=== PATIENT | male | born 1990 | race Caucasian/White ===

== ENCOUNTER 2024-06-18 18:45 | Observation (INO) ==
[2024-06-18] MEDS: ONDANSETRON INJ 2 MG/ML 2 ML VIAL IV STA (19:13)
--- NOTE | 2024-06-18 19:13 | Emergency Department Note ---
Impression & Plan Near syncope ED Provider Note HISTORY OF PRESENT ILLNESS: Patient is a 33-year-old male presenting after syncopal episode. Patient reports that he was out to dinner when he started to "feel weird." He states that he got very hot and had a pain in his left chest by his shoulder and felt very nauseous. He states that he felt like he was getting passed out so he is slumped forward and put his head down on the table. He reportedly did not fall out of the chair. On EMS arrival, the patient reportedly had a blood pressure of 80/40 and a fingerstick glucose of 55. He was given oral glucose and his blood sugar improved to 72 on recheck. Patient denies any chest pain or shortness of breath on arrival to the ER. He reports he still does not feel well but feels slightly improved from earlier. He has never had any syncopal episodes previously. However, he does report that in the last month that every time he works out at the gym he feels very lightheaded and dizzy and has to sit down or lay down on the ground because he feels like he is going to pass out. He denies any DVT or PE history. Denies any medication changes or [id number] medications. Denies any anticoagulation use. He denies any recent head injuries or chiropractic manipulation of his neck. Patient is currently complaining of nausea. ROS: as above PHYSICAL EXAM: Constitutional: Patient appears in no acute distress. HENT: Head: Normocephalic and atraumatic. Eyes: EOMI, PERRL Mouth/Throat: Mucous membranes moist. Neck: Trachea midline. Neck supple. Cardiovascular: RRR, No murmurs, rubs or gallops. Intact distal pulses. Pulmonary/Chest: No respiratory distress. Breath sounds clear and equal bilaterally. No wheezes or rales. Abdominal: Abdomen soft, no tenderness, rebound or guarding. Musculoskeletal: No edema, tenderness or deformity noted. Skin: Warm and dry. No rash, erythema, pallor or cyanosis Psychiatric: Appropriate mood and affect for situation. Neurological: Alert and keenly responsive. CN II-XII grossly intact, moving all extremities equally and fully. MDM: - Vitals signs stable. - History obtained via patient. History as above. - Chronic conditions affecting care: Anxiety disorder; migraine - Differential diagnoses include, but are not limited to: ACS; PE; dysrhythmia; electrolyte abnormality; orthostatic hypotension - Order placed for continuous cardiac monitoring. At this time, monitor showed rate of 75 bpm with normal sinus rhythm, per my interpretation. - External medical records reviewed. Primary care visit note dated 06/17/2024 was reviewed. Patient was seen for 3-month follow-up after starting fluoxetine. - EKG interpreted by myself showed normal sinus rhythm. Rate 69 bpm. QT 406. No acute ischemic changes. - Laboratory workup interpreted by myself showed normal WBC; normal PT/INR; negative D-dimer stable electrolytes;; normal troponin; normal lipase; normal TSH - CXR negative for pneumonia, per my interpretation - Repeat troponin within normal limits - UA negative for infection - Patient given 4 mg IV zofran for nausea in ER. - Orthostatic vital signs within normal limits - Patient ambulated to the bathroom with nursing staff and stated that he felt that weird sensation again and got very diaphoretic and lightheaded. He was assisted back to the bed by nursing staff. Fingerstick glucose of 120. Vital signs stable on return to the bed. -However, given patient's persistent symptoms and near syncopal episode again in the ER, will admit for further workup including an echocardiogram. - Discussion was had with caseworker intake about patient's case and need for admission - Hospitalist, Dr. Olson, consulted for admission - Patient admitted to [facility] hospitalist service for further evaluation and management. ASSESSMENT AND PLAN: Diagnosis: near syncope Plan: Admit Past Med/Surg History Problem List (Updated 06/18/24 @ 22:48 by Shayy Julian MD) Near syncope (Acute) Migraine Generalized anxiety disorder No significant past surgical history No chronic diseases present Surgical History Hx of elbow surgery Family History Grandmother (Maternal) Breast cancer Lung cancer Father Depression Mother Depression Denies family history of Ovarian cancer Prostate cancer Diabetes Dementia Heart disease Myocardial infarction Colorectal cancer Hypertension Stroke Social History Smoking Status: Former smoker Second Hand Exposure: No; Do You Dip or Chew Tobacco: No; Hx Alcohol Use: No Hx Substance Use: No Preferred Language: Bahamian Visual Impairment: Limited Hearing Ability: Normal marital status: Current Living Situation: Spouse current occupational status: employed How many Children do You have: 0 Feels Safe at Home: Yes Childhood Exposure to Second-Hand Smoke: No Diet: regular caffeine: Yes during the past year weight has: increased > 10 lbs Dental Care, Regularly: No Physical Activity Frequency: Daily Physical Activity Frequency Comment: Walking Seatbelt Use: always Sunscreen Use: No Assistive Devices: Glasses Allergies Allergies Allergy/AdvReac Type Severity Reaction Status Date / Time No Known Drug Allergies Allergy Verified 06/17/24 09:13 Home Meds Home Medications Medication Instructions Recorded Confirmed lisdexamfetamine 30 mg capsule 30 mg PO QAM 06/17/24 06/18/24 Previous Rx's Medication Instructions Recorded fluoxetine 20 mg capsule 20 mg PO DAILY #30 caps 02/11/24 fluoxetine 10 mg capsule 10 mg PO DAILY #30 caps 03/18/24 Results & Data (ED) Vital Signs Vital Signs - 24 hr 06/18/24 18:49 06/18/24 18:49 06/18/24 19:06 Temperature 36.3 C L Temperature Source Oral Pulse Rate - Lying Pulse Rate - Sitting Pulse Rate - Standing Pulse Rate 73 80 Pulse Rate [Apical] Respiratory Rate 15 Respiratory Depth Normal Blood Pressure - Lying Blood Pressure - Sitting Blood Pressure- Standing Blood Pressure 110/66 Blood Pressure [Right Arm] Blood Pressure Mean 80 Blood Pressure Mean [Right Arm] Blood Pressure Position Semi-fowlers Blood Pressure Position [Right Arm] Pulse Oximetry 100 Oxygen Delivery Method Room Air Room Air Sepsis Recent Fever Within 48 Hours No Sepsis New/Unexplained Change in Mental Status No Sepsis Action Taken by Nursing No Action Required 06/18/24 21:10 06/18/24 21:12 06/18/24 22:43 Temperature Temperature Source Pulse Rate - Lying 63 Pulse Rate - Sitting 72 Pulse Rate - Standing 71 Pulse Rate Pulse Rate [Apical] 63 75 Respiratory Rate 15 18 Respiratory Depth Blood Pressure - Lying 113/68 Blood Pressure - Sitting 118/57 L Blood Pressure- Standing 115/74 Blood Pressure Blood Pressure [Right Arm] 115/74 105/71 Blood Pressure Mean Blood Pressure Mean [Right Arm] 87 82 Blood Pressure Position Blood Pressure Position [Right Arm] Semi-fowlers Pulse Oximetry 97 96 Oxygen Delivery Method Sepsis Recent Fever Within 48 Hours Sepsis New/Unexplained Change in Mental Status Sepsis Action Taken by Nursing Laboratory Data 06/18/24 18:55 06/18/24 20:17 Lab Results 06/18/24 06/18/24 06/18/24 Range/Units 18:55 20:17 20:50 WBC 5.96 (4.8-10.8) K/ul RBC 4.37 L (4.70-6.10) M/uL Hgb 14.0 (14.0-18.0) g/dl Hct 40.3 L (42.0-52.0) % MCV 92.2 (80.0-100.0) fL MCH 32.0 (25.0-34.0) pg MCHC 34.7 (32.0-36.0) g/dL RDW Std Deviation 42.7 (36.4-46.3) fL RDW Coeff of Jerrod 12.5 (11.5-14.5) % Plt Count 189 (130-400) K/uL MPV 10.1 (9.4-12.4) fL Immature Gran % (Auto) 0.2 % Neut % (Auto) 47.9 % Lymph % (Auto) 41.8 % [place] % (Auto) 8.4 % Eos % (Auto) 1.5 % Baso % (Auto) 0.2 % Neut # (Auto) 2.86 (1.40-6.50) K/uL Lymph # (Auto) 2.49 (1.20-3.40) K/uL [place] # (Auto) 0.50 (0.11-0.59) K/uL Eos # (Auto) 0.09 (0.00-0.50) K/uL Baso # (Auto) 0.01 (0.00-0.20) K/uL Immature Gran # (Auto) 0.01 (0.01-0.20) K/uL PT 11.7 (9.0-12.0) Seconds INR 1.1 (0.9-1.1) D-Dimer < 190 (0-500) ug/L FEU Sodium 139 (136-145) mmol/L Potassium TNP 3.8 Chloride 107 (98-107) mmol/L Carbon Dioxide 24 (21-32) mmol/L Anion Gap 8 (3-11) BUN 10 (6-23) mg/dl Creatinine 0.77 (0.6-1.4) mg/dl Est Cr Clr Drug Dosing 152.8 ml/min eGFR 120.48 BUN/Creatinine Ratio 13.0 (10-20) Glucose 83 (70-99(Fasting)) mg/dl POC Glucose (70-99) mg/dl Calcium 8.6 (8.6-10.3) mg/dl Magnesium 2.1 (1.7-2.4) mg/dl Total Bilirubin 0.6 (0.2-1.0) mg/dl AST TNP 14 ALT 12 (7-52) U/L Alkaline Phosphatase 59 (34-104) U/L Troponin I High Sens < 2.3 (0-20) pg/ml Total Protein 6.8 (6.0-8.3) gm/dl Albumin 4.3 (3.4-5.0) gm/dl Globulin 2.5 (2.5-4.0) gm/dl Albumin/Globulin Ratio 1.7 (0.9-2) Lipase 42 (11-82) U/L TSH 2.486 (0.300-4.500) uIu/ml Urine Color Yellow Urine Appearance Clear (Clear) Urine pH 7.0 (4.5-7.5) Ur Specific [place] 1.008 (1.000-1.030) Urine Protein Negative (Negative) Urine Glucose (UA) Negative (Negative) Urine Ketones Negative (Negative) Urine Blood Negative (Negative) Urine Nitrite Negative (Negative) Urine Bilirubin Negative (Negative) Urine Urobilinogen Negative (Negative) Ur Leukocyte Esterase Negative (Negative) 06/18/24 06/18/24 Range/Units 21:43 22:41 WBC (4.8-10.8) K/ul RBC (4.70-6.10) M/uL Hgb (14.0-18.0) g/dl Hct (42.0-52.0) % MCV (80.0-100.0) fL MCH (25.0-34.0) pg MCHC (32.0-36.0) g/dL RDW Std Deviation (36.4-46.3) fL RDW Coeff of Jerrod (11.5-14.5) % Plt Count (130-400) K/uL MPV (9.4-12.4) fL Immature Gran % (Auto) % Neut % (Auto) % Lymph % (Auto) % [place] % (Auto) % Eos % (Auto) % Baso % (Auto) % Neut # (Auto) (1.40-6.50) K/uL Lymph # (Auto) (1.20-3.40) K/uL [place] # (Auto) (0.11-0.59) K/uL Eos # (Auto) (0.00-0.50) K/uL Baso # (Auto) (0.00-0.20) K/uL Immature Gran # (Auto) (0.01-0.20) K/uL PT (9.0-12.0) Seconds INR (0.9-1.1) D-Dimer (0-500) ug/L FEU Sodium (136-145) mmol/L Potassium Chloride (98-107) mmol/L Carbon Dioxide (21-32) mmol/L Anion Gap (3-11) BUN (6-23) mg/dl Creatinine (0.6-1.4) mg/dl Est Cr Clr Drug Dosing ml/min eGFR BUN/Creatinine Ratio (10-20) Glucose (70-99(Fasting)) mg/dl POC Glucose 120 H (70-99) mg/dl Calcium (8.6-10.3) mg/dl Magnesium (1.7-2.4) mg/dl Total Bilirubin (0.2-1.0) mg/dl AST ALT (7-52) U/L Alkaline Phosphatase (34-104) U/L Troponin I High Sens < 2.3 (0-20) pg/ml Total Protein (6.0-8.3) gm/dl Albumin (3.4-5.0) gm/dl Globulin (2.5-4.0) gm/dl Albumin/Globulin Ratio (0.9-2) Lipase (11-82) U/L TSH (0.300-4.500) uIu/ml Urine Color Urine Appearance (Clear) Urine pH (4.5-7.5) Ur Specific [place] (1.000-1.030) Urine Protein (Negative) Urine Glucose (UA) (Negative) Urine Ketones (Negative) Urine Blood (Negative) Urine Nitrite (Negative) Urine Bilirubin (Negative) Urine Urobilinogen (Negative) Ur Leukocyte Esterase (Negative) Administered Medications Discontinued Medications Ondansetron HCl (Ondansetron Inj 2 Mg/Ml 2 Ml Vial) 4 mg IV NOW STA Stop: 06/18/24 19:11 Last Admin: 06/18/24 19:13 Dose: 4 mg Documented By: LIZZ Discharge Plan Visit Data Chief Complaint: Syncope Stated Complaint: SYNCOPE ED Provider: Shayy Julian Discharge Problem: Near syncope Forms Stand Alone Forms: [facility] Prescriptions Prescriptions: No Action fluoxetine 10 mg capsule 10 mg PO DAILY Qty: 30 2RF Rx Instructions: in addition to 20mg capsule for total of 30mg lisdexamfetamine 30 mg capsule 30 mg PO QAM fluoxetine 20 mg capsule 20 mg PO DAILY Qty: 30 2RF Referrals Referrals: Ariel Duarte CRNP [Primary Care Provider] -
[2024-06-18 19:14] LABS: Basophils # (auto) 0.01 K/uL (0.00-0.20); Basophils % (auto) 0.2 %; Eosinophils # (auto) 0.09 K/uL (0.00-0.50); Eosinophils % (auto) 1.5 %; Hematocrit (blood only) 40.3 % (42.0-52.0); Immature Granulocytes # (auto) 0.01 K/uL (0.01-0.20); Immature Granulocytes % (auto) 0.2 %; Lymphocytes # (auto) 2.49 K/uL (1.20-3.40); Lymphocytes % (auto) 41.8 %; Mean Corpuscular Hgb Conc 34.7 g/dL (32.0-36.0); Mean Corpuscular Volume 92.2 fL (80.0-100.0); Mean Platelet Volume 10.1 fL (9.4-12.4); Monocytes % (auto) 8.4 %; Neutrophils # (auto) 2.86 K/uL (1.40-6.50); Neutrophils % (auto) 47.9 %; Platelet Count 189 K/uL (130-400); RDW Coefficient of Variation 12.5 % (11.5-14.5); RDW Standard Deviation 42.7 fL (36.4-46.3); Red Blood Count 4.37 M/uL (4.70-6.10); White Blood Count 5.96 K/ul (4.8-10.8)
[2024-06-18 19:38] LABS: D Dimer < 190 ug/L FEU (0-500); INR 1.1 (0.9-1.1); Prothrombin Time 11.7 Seconds (9.0-12.0)
[2024-06-18 19:53] LABS: Alanine Aminotransferase 12 U/L (7-52); Albumin Globulin Ratio 1.7 (0.9-2); Albumin Level 4.3 gm/dl (3.4-5.0); Alkaline Phosphatase 59 U/L (34-104); Anion Gap 8 (3-11); Bilirubin,Total 0.6 mg/dl (0.2-1.0); Blood Urea Nitrogen 10 mg/dl (6-23); Calcium 8.6 mg/dl (8.6-10.3); Carbon Dioxide 24 mmol/L (21-32); Chloride 107 mmol/L (98-107); Creatinine Clr Calc Pharmacy 152.8 ml/min; Globulin 2.5 gm/dl (2.5-4.0); Glucose 83 mg/dl (70-99(Fasting)); Lipase 42 U/L (11-82); Magnesium 2.1 mg/dl (1.7-2.4); Sodium 139 mmol/L (136-145); Thyroid Stimulating Hormone 2.486 uIu/ml (0.300-4.500); Total Protein 6.8 gm/dl (6.0-8.3); Troponin I High Sensitivity < 2.3 pg/ml (0-20)
[2024-06-18 20:47] LABS: Potassium 3.8 mmol/L (3.5-5.1)
[2024-06-18 21:08] LABS: Appearance Urine Clear (Clear); Bilirubin Urine Negative (Negative); Blood Urine Negative (Negative); Color Urine Yellow; Glucose Urine UA Negative (Negative); Ketones Urine Negative (Negative); Leukocyte Esterase Urine Negative (Negative); Nitrite Urine Negative (Negative); Protein Urine Negative (Negative); Specific Gravity Urine 1.008 (1.000-1.030); Urobilinogen Urine Negative (Negative)
[2024-06-18 22:43] VITALS: RESP 18
--- NOTE | 2024-06-18 22:47 | History & Physical Report ---
Date of Service June 18, 2024 Assessment & Plan (1) Near syncope: Plan: EKG showed NSR Troponin negative, TSH WNL, D-dimer negative CXR negative echo ordered promote oral hydration orthostatic VS ordered monitor on telemetry Suspect orthostatic hypotension secondary to fluoxetine use; episodes of lightheadedness began approximately 4 months ago after starting fluoxetine Defer fluoxetine titration to PCP (2) Generalized anxiety disorder: Plan: continue fluoxetine at this time; see #1 (3) ADHD: Plan: Continue Vyvanse Plan Patient is a 33-year-old male with a past medical history of anxiety and ADHD. patient had an syncopal episode at dinner 06/18. He also has had lightheadedness after working out and feels dizzy when going from sitting to standing x 4 months after starting fluoxetine. He is being admitted for a syncopal workup including an echocardiogram. VTE ppx: SCDs - low risk and anticipate dc 06/19 Diet: regular Dispo: med/tele Anticipate discharge 06/19 after echo. Admission and Anticipated Discharge Date Admission Date: 06/18/24 History of Present Illness Chief Complaint: syncope Primary Care Provider: RICHI Santillan Patient is a 33-year-old male with a past medical history of anxiety and ADHD. He is being admitted for a syncopal workup including an echocardiogram. Patient seen at bedside with his significant other present. He stated today at dinner he started to feel off and developed mild left shoulder pain. He then laid his head down because he felt lightheaded. Endorses loss of consciousness. He stated that he has had episodes after working out for approximately 4 months of lightheadedness, however the episodes are getting better. He recently started fluoxetine 4 to 5 months ago. He stated he often gets dizzy when going from sitting to standing, he is recently increased his fluid intake to help with this but notices no change. Patient denies current dizziness, lightheadedness, dyspnea, dyspnea on exertion, chest pain, abdominal pain, nausea, vomiting, diarrhea, numbness, tingling. He denies family history of any cardiac diseases. he denies any personal history of cardiac diseases, arrhythmias, DM, previous VTE. He took his home medications this morning. He wishes to be DNR/DNI. He does not use nicotine products and only drinks alcohol socially. EMS noted blood pressure 80/40 and BG 55. EMS gave oral glucose. Allergies Allergy/AdvReac Type Severity Reaction Status Date / Time No Known Drug Allergies Allergy Verified 06/17/24 09:13 Home Medications Medication Instructions Recorded Confirmed Type fluoxetine 20 mg capsule 20 mg PO DAILY #30 caps 02/11/24 06/18/24 Rx fluoxetine 10 mg capsule 10 mg PO DAILY #30 caps 03/18/24 06/18/24 Rx lisdexamfetamine 30 mg capsule 30 mg PO QAM 06/17/24 06/18/24 History Past Med/Surg History Problem List (Updated 06/18/24 @ 22:52 by Berta Alvarado PA-C) ADHD Near syncope (Acute) Migraine Generalized anxiety disorder No significant past surgical history No chronic diseases present Surgical History Hx of elbow surgery Family History Grandmother (Maternal) Breast cancer Lung cancer Father Depression Mother Depression Denies family history of Ovarian cancer Prostate cancer Diabetes Dementia Heart disease Myocardial infarction Colorectal cancer Hypertension Stroke Social History Smoking Status: Former smoker Smoking End Date: 5 years ago; Second Hand Exposure: No; Do You Dip or Chew Tobacco: No; Hx Alcohol Use: Yes Alcohol type: other Hx Substance Use: No Preferred Language: Upper Sorbian Communication Ability: Effective Visual Impairment: Limited Hearing Ability: Normal [employer]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 Beliefs That Will Affect Care: None marital status: Current Living Situation: Alone current occupational status: employed How many Children do You have: 0 Feels Safe at Home: Yes Safety Concerns: Feels Safe At This Time Childhood Exposure to Second-Hand Smoke: No Diet: regular caffeine: Yes during the past year weight has: increased > 10 lbs Dental Care, Regularly: No Physical Activity Frequency: Daily Physical Activity Frequency Comment: Walking Seatbelt Use: always Sunscreen Use: No Assistive Devices: None Review of Systems Review of Systems: see HPI Physical Exam Physical Exam: The patient is awake, alert and oriented 3, well developed and well nourished, normocephalic and atraumatic, in no acute distress. Non-toxic appearing. HEENT- EOMI, mucous membranes moist. Hearing grossly intact. Heart-normal S1 and S2. No murmurs, rubs or gallops. Lungs-clear bilaterally, no respiratory distress, no accessory muscle use. Abdomen-normal bowel sounds and soft. No ascites noted. Non-tender. Extremities- no clubbing, cyanosis, or edema. Rheumatologic-normal range of motion. Psychiatric-normal affect. Results & Data Results & Data Vital Signs (Past 12 Hours) Vital Signs Temp Pulse Pulse Resp BP BP Pulse Ox 06/18/24 22:43 75 18 105/71 96 06/18/24 21:12 63 15 115/74 97 06/18/24 19:06 80 06/18/24 18:49 06/18/24 18:49 36.3 C L 73 15 110/66 100 O2 Del Method 06/18/24 22:43 06/18/24 21:12 06/18/24 19:06 06/18/24 18:49 Room Air 06/18/24 18:49 Room Air Laboratory Results Reviewed CBC, PT/INR, CMP, d-dimer, mg, TSH, lipase, UA Diagnostic Findings reviewed CXR Medications Administered ED: zofran ECG Additional Comments: NSR Code Status & VTE Plan Code Status dnr/dni VTE Prophylaxis Plan VTE Prophylaxis will be ordered: Yes Supervising Physician Co-Signing Physician Notes Attending addendum: I have physically seen this patient, have supervised the DARA's activities, and agree with the H&P unless as otherwise noted. Assessment and Plan: The patient is a 33-year-old male with past medical history including anxiety and ADHD, who presents to the emergency department with a near syncopal episode at dinner 06/18. He reports feeling dizzy when working out, and has had issues with dizziness from going sitting to standing over the past 4 months. #Near syncope- The patient will be admitted to telemetry for serial cardiac enzymes, serial EKG's, cardiac rhythm monitoring and a 2-D echocardiogram with Dopplers. Patient noted by symptoms prior to the ED, and was noted in the ED to have near syncopal episode when walking to the bathroom Orthostatic vital signs Encourage oral intake of fluids Patient had been started on fluoxetine about 4 months ago, and has since noted episodes of lightheadedness have developed Would be concerned regarding orthostatic hypotension caused by fluoxetine as a cause of his symptoms Will temporarily hold fluoxetine Hypertrophic cardiomyopathy/left ventricular outflow tract obstruction/aortic stenosis would be a concern Potassium of 3.8 will be optimized with Klor-Con [address] on NSS + KCl 20 MEQ's A 150 mL/h x 1 L PG Care Time/CCT Total # of Minutes Spent Total Time Spent with Patient: Total time spent is greater than 50% in coordination of care (as documented) at patient's floor/unit and/or counseling patient: Coding Level of Care Code 90911 INT INP/OBS CARE 3/75MIN Diagnoses Near syncope R55 Generalized anxiety disorder F41.1 ADHD F90.9
[2024-06-19] MEDS ORDERED: DOCUSATE SODIUM 100 MG CAP PO PRN (01:14)
[2024-06-19] MEDS ORDERED: ACETAMINOPHEN 325 MG TAB PO PRN (01:14)
--- NOTE | 2024-06-19 04:50 | Billing Data ---
Date of Service June 19, 2024 Coding
[2024-06-19] MEDS: NSS + 20MEQ KCL 20 MEQ/1,000 ML BAG IV SCH (05:28)
[2024-06-19 06:37] LABS: Basophils # (auto) 0.02 K/uL (0.00-0.20); Basophils % (auto) 0.4 %; Eosinophils # (auto) 0.05 K/uL (0.00-0.50); Hematocrit (blood only) 38.2 % (42.0-52.0); Hemoglobin 13.3 g/dl (14.0-18.0); Immature Granulocytes # (auto) 0.01 K/uL (0.01-0.20); Immature Granulocytes % (auto) 0.2 %; Lymphocytes % (auto) 33.3 %; Mean Corpuscular Hemoglobin 31.9 pg (25.0-34.0); Mean Corpuscular Hgb Conc 34.8 g/dL (32.0-36.0); Mean Corpuscular Volume 91.6 fL (80.0-100.0); Monocytes # (auto) 0.69 K/uL (0.11-0.59); Monocytes % (auto) 13.5 %; Neutrophils # (auto) 2.64 K/uL (1.40-6.50); Neutrophils % (auto) 51.6 %; Platelet Count 188 K/uL (130-400); RDW Coefficient of Variation 12.5 % (11.5-14.5); RDW Standard Deviation 41.6 fL (36.4-46.3); Red Blood Count 4.17 M/uL (4.70-6.10); White Blood Count 5.11 K/ul (4.8-10.8)
[2024-06-19] MEDS: POTASSIUM CHLORIDE CRTAB 20 MEQ TABCR PO STA (06:45)
[2024-06-19 07:02] LABS: BUN Creatinine Ratio 11.8 (10-20); Calcium 8.6 mg/dl (8.6-10.3); Creatinine Clr Calc Pharmacy 138.4 ml/min; Potassium 4.3 mmol/L (3.5-5.1)
--- NOTE | 2024-06-19 07:39 | XRay Report ---
EXAM: XR chest 1V portable CLINICAL HISTORY: SYNCOPE WTW/HKS TECHNIQUE: An X-ray image of the chest is obtained in AP projection. COMPARISON: No prior studies are available for comparison. FINDINGS: Pulmonary Parenchyma: Accentuated broncho vascular markings are seen. may refer to early infection or inflammation. Lungs are clear bilaterally. No evidence of consolidation, collapse, or focal opacities. No pulmonary nodules are identified. No evidence of pleural effusion or pleural thickening. Heart and Mediastinum: Bilateral hilar vascular congestion was noted. Heart size and shape are normal. prominent left atrial appendage shadow. No mediastinal widening or masses. No hilar or mediastinal lymphadenopathy. Bony Thorax: The bony thorax appears intact without fractures or deformities. Soft Tissues: Soft tissues overlying the chest wall are unremarkable. IMPRESSION: 1. Accentuated broncho vascular markings are seen. may refer to early infection or inflammation. Follow-up is advised. 2. Bilateral hilar vascular congestion was noted. 3. No gross air-space opacities. Electronically signed by Tom Muniz 06-19-2024 07:38 AM
[2024-06-19] MEDS ORDERED: FLUoxetine HCL 10 MG CAP PO SCH (09:00)
[2024-06-19 11:32] VITALS: BP 116/72; PULSE 60; TEMP 99; O2SAT 99
--- NOTE | 2024-06-19 13:46 | XCELERA ---
[id number] \\[id number]
--- NOTE | 2024-06-19 18:59 | Discharge Summary ---
Discharge Summary Date of Service June 19, 2024 Principal Dx & Hospital Course #1 = Principal Diagnosis (1) Near syncope: 33 [id number] presented after syncopal event at home during dinner. -EKG showed NSR -Troponin negative, TSH WNL, D-dimer negative -CXR negative -Echo unremarkable -Orthostatic vital signs normal -No events on telemetry -Follow-up with PCP There was question if patient's fluoxetine use was causing some orthostatic hypotension (recently began approximately 4 months ago after starting fluoxetine). However, further discussions revealed that patient has a history of intolerance of alcohol. He had a cj the night of his syncopal episode. Prior reports of alcohol causing similar symptoms though never severe enough to syncopize. Recommend refraining from alcohol (2) Generalized anxiety disorder: Continue fluoxetine (3) ADHD: Continue Vyvanse Plan Patient is a 33-year-old male with a past medical history of anxiety and ADHD. patient had an syncopal episode at dinner 06/18. He also has had lightheadedness after working out and feels dizzy when going from sitting to standing x 4 months after starting fluoxetine. He is being admitted for a syncopal workup including an echocardiogram. VTE ppx: SCDs - low risk and anticipate dc 06/19 Diet: regular Dispo: med/tele Anticipate discharge 06/19 after echo. Admission HPI Per Admitting Provider Patient is a 33-year-old male with a past medical history of anxiety and ADHD. He is being admitted for a syncopal workup including an echocardiogram. Patient seen at bedside with his significant other present. He stated today at dinner he started to feel off and developed mild left shoulder pain. He then laid his head down because he felt lightheaded. Endorses loss of consciousness. He stated that he has had episodes after working out for approximately 4 months of lightheadedness, however the episodes are getting better. He recently started fluoxetine 4 to 5 months ago. He stated he often gets dizzy when going from sitting to standing, he is recently increased his fluid intake to help with this but notices no change. Patient denies current dizziness, lightheadedness, dyspnea, dyspnea on exertion, chest pain, abdominal pain, nausea, vomiting, diarrhea, numbness, tingling. He denies family history of any cardiac disea ses. he denies any personal history of cardiac diseases, arrhythmias, DM, previous VTE. He took his home medications this morning. He wishes to be DNR/DNI. He does not use nicotine products and only drinks alcohol socially. EMS noted blood pressure 80/40 and BG 55. EMS gave oral glucose. Discharge Exam General: No acute distress, nondiaphoretic, well-developed, well-nourished. Skin: The skin was without rashes, erythema, edema, or bruising. Cardiac: Regular rate and rhythm without murmurs gallops or rubs. Pulm: Clear to auscultation bilaterally without wheezes, rales or rhonchi. No retractions or accessory muscle use. Abdominal: Positive bowel sounds x 4. Soft, nontender, without masses or organomegaly. No guarding or rebound tenderness. Neuro: A&O x3. No focal neurological deficits. Discharge Plan Discharge Items Patient Disposition: Home - Self-Care Reason For Visit: SYNCOPAL WORKUP Discharge Diagnosis: Syncopal episode Activity: Resume your previous activity Non-emergency contact: Primary Care Provider Call non-emergency contact if: you have any medication questions and your symptoms worsen Follow-up/Referrals: Ariel Duarte CRNP [Primary Care Provider] - 06/27/24 9:30 am (Follow-up in 1 week) Diet: Regular Addtl Attending Provider Instructions: Mr. Elias, Wiley were admitted to the hospital after a syncopal episode at home. You had an extensive workup which was unremarkable. Your troponin (heart enzyme) was normal, your thyroid hormone was normal, no evidence of blood clots, negative chest x-ray, normal labs, normal vital signs, and your echocardiogram (ultrasound of your heart) showed normal size and function. From our conversation, it is most likely that this syncopal episode was due to the alcohol you drink with dinner. Given your prior history of alcohol intolerance, now in conjunction with this episode of syncope, I recommend that you refrain from alcohol and monitor your response. There have been no medication changes from this hospitalization. Please follow- up with your PCP in 1-2 weeks. Please return to the hospital if you experience any of the following: Another syncopal episode, chest pain, shortness of breath, persistent nausea with vomiting, or any other symptoms concerning for you. It was a pleasure taking care of you while you were in the hospital, Belinda Rao PA-C Pending Studies at Discharge: No Stand-Alone Forms: My [facility], Smoking Cessation Medications and DC Order Prescriptions: Continued fluoxetine 10 mg capsule 10 mg PO DAILY Qty: 30 2RF Rx Instructions: in addition to 20mg capsule for total of 30mg lisdexamfetamine 30 mg capsule 30 mg PO QAM fluoxetine 20 mg capsule 20 mg PO DAILY Qty: 30 2RF Discharge Orders: Discharge Order (Routine); Ordered 06/19/24 Ordered By: Belinda Rao Admission Data Admit Date/Time: 06/18/24 23:08 Attending Provider: Luis F Galindo Admit Provider: Berta Alvarado Primary Care Provider: Ariel Duarte Other Providers: Fred Olson Other Interventions: Discharge Summary Assessment (RN) Last Done: 06/19/24 13:59 Hospital Stay Data Consultations 06/18/24 22:46 ED Decision to Admit Stat Pending Results Patient Have Any Pending Studies at Discharge: No Discharge Instructions Given to Patient (Per Discharging Provider) Wiley Dunn were admitted to the hospital after a syncopal episode at home. You had an extensive workup which was unremarkable. Your troponin (heart enzyme) was normal, your thyroid hormone was normal, no evidence of blood clots, negative chest x-ray, normal labs, normal vital signs, and your echocardiogram (ultrasound of your heart) showed normal size and function. From our conversation, it is most likely that this syncopal episode was due to the alcohol you drink with dinner. Given your prior history of alcohol intolerance, now in conjunction with this episode of syncope, I recommend that you refrain from alcohol and monitor your response. There have been no medication changes from this hospitalization. Please follow- up with your PCP in 1-2 weeks. Please return to the hospital if you experience any of the following: Another syncopal episode, chest pain, shortness of breath, persistent nausea with vomiting, or any other symptoms concerning for you. It was a pleasure taking care of you while you were in the hospital, Belinda Rao PA-C Total Time Total Time Spent Total Time Spent (In Minutes): Greater than 30 minutes spent completing this discharge process including direct patient care, medication reconciliation, documentation, review of labs and images, and coordination of care. Coding Level of Care Code 01509 INP/OBS DISCH >30 MIN Diagnoses Near syncope R55 Generalized anxiety disorder F41.1 ADHD F90.9
--- NOTE | 2024-06-19 21:51 | Electrocardiogram Report ---
Test Reason : Blood Pressure : */* mmHG Vent. Rate : 69 BPM Atrial Rate : 69 BPM P-R Int : 158 ms QRS Dur : 94 ms QT Int : 400 ms P-R-T Axes : 57 35 46 degrees QTcB Int : 428 ms Normal sinus rhythm Early repolarization When compared with ECG of 18-Jun-2024 18:49, No significant change was found Confirmed by Bhavesh Whyte ([id number]) on 06/19/2024 9:51:23 PM Referred By: REFERRED SELF Confirmed By: Bhavesh Whyte
--- NOTE | 2024-06-19 21:51 | Electrocardiogram Report ---
Test Reason : Blood Pressure : */* mmHG Vent. Rate : 69 BPM Atrial Rate : 69 BPM P-R Int : 164 ms QRS Dur : 104 ms QT Int : 406 ms P-R-T Axes : 43 47 47 degrees QTcB Int : 435 ms Normal sinus rhythm Normal ECG No previous ECGs available Confirmed by Bhavesh Whyte ([id number]) on 06/19/2024 9:50:59 PM Referred By: REFERRED SELF Confirmed By: Bhavesh Whyte
== END 2024-06-19 14:30 | disposition home or self-care (01) ==
LOC: 2W 18:45 → ED 18:45 → SUATTDRO 23:08 → 2W 06-19 00:47